=== PATIENT | male | born 1940 | race Caucasian/White ===

== ENCOUNTER 2021-03-11 18:06 | Inpatient (IN) | payer MEDICARE, OTHER ==
[~2021-03-11] VITALS: Ht 172.7 cm; Wt 75.1 kg
[2021-03-11 18:43] LABS: HEMOGLOBIN 14.2 gm/dl (14.0-17.5); RED BLOOD COUNT 4.02 M/UL (4.20-5.50); WHITE BLOOD COUNT 6.6 K/UL (4.5-11.0)
[2021-03-11 20:08] LABS: BUN/CREATININE RATIO 21 (0-10)
[2021-03-11] MEDS ORDERED: LOPRESSOR 50 MG50 MG PO (23:11)
[2021-03-11] MEDS ORDERED: ISOSORBIDE MONO30 MG PO (23:46)
[2021-03-11] MEDS ORDERED: CLOPIDOGREL75 MG PO (23:46)
[2021-03-11] MEDS ORDERED: ATORVASTATIN CA10 MG PO (23:47)
[2021-03-11] MEDS ORDERED: COZAAR 25MG TAB25 MG PO (23:47)
[2021-03-11] MEDS ORDERED: ADULT LOW DOSE81 MG PO (23:47)
[2021-03-11] MEDS ORDERED: HYDROCHLOROTH12.5 MG PO (23:47)
[2021-03-12 06:12] LABS: HEMOGLOBIN 13.2 gm/dl (14.0-17.5); RED BLOOD COUNT 3.8 M/UL (4.20-5.50); WHITE BLOOD COUNT 7.7 K/UL (4.5-11.0)
[2021-03-12 06:54] LABS: BUN/CREATININE RATIO 21 (0-10)
[2021-03-13 06:09] LABS: HEMOGLOBIN 13.6 gm/dl (14.0-17.5); RED BLOOD COUNT 3.89 M/UL (4.20-5.50); WHITE BLOOD COUNT 7.2 K/UL (4.5-11.0)
[2021-03-13 06:32] LABS: BUN/CREATININE RATIO 23 (0-10)
[2021-03-14 08:49] LABS: HEMOGLOBIN 13.1 gm/dl (14.0-17.5); RED BLOOD COUNT 3.77 M/UL (4.20-5.50)
--- NOTE | 2021-03-14 09:08 | NUR ---
PATIENT HR WAS 130'S AT 630 AM, GOT ORDERS PER EMAR DR PEREA MADE AWARE CARDIOLOGY CALLED BUT DIDN'T ANSWER, LEFT VOICEMAIL.... EKG AND ABG WILL BE OBTAINED [facility]....
[2021-03-14 09:34] LABS: BUN/CREATININE RATIO 25 (0-10)
[2021-03-14 17:56] LABS: BUN/CREATININE RATIO 31 (0-10)
--- NOTE | 2021-03-14 18:17 | NUR ---
CARDIO AND HOSPITALIST NOTIFIED OF PT HR HIGH 158 EKG RECIEVED MEDS GIVEN, REFER TO EMAR WCTM
[2021-03-15 04:26] LABS: BUN/CREATININE RATIO 35 (0-10)
[2021-03-16 04:10] LABS: HEMOGLOBIN 13.6 gm/dl (14.0-17.5); RED BLOOD COUNT 3.97 M/UL (4.20-5.50); WHITE BLOOD COUNT 6.4 K/UL (4.5-11.0)
[2021-03-16 04:30] LABS: BUN/CREATININE RATIO 29 (0-10)
[2021-03-17 02:35] LABS: HEMOGLOBIN 13.2 gm/dl (14.0-17.5); RED BLOOD COUNT 3.85 M/UL (4.20-5.50); WHITE BLOOD COUNT 7.1 K/UL (4.5-11.0)
[2021-03-17 03:00] LABS: BUN/CREATININE RATIO 35 (0-10)
--- NOTE | 2021-03-17 09:56 | NUR ---
ROOM AIR O2 SAT 87%
[2021-03-17] MEDS ORDERED: OMNICEF 300 MG300 MG PO (11:37)
[2021-03-17] MEDS ORDERED: MEDROL DOSEPAK 24 MG PO (11:37)
[2021-03-17] MEDS ORDERED: PROTONIX 40 MG40 M1 PO (11:37)
[2021-03-17] MEDS ORDERED: AZITHROMYCIN250 MG PO (11:37)
[2021-03-17] MEDS ORDERED: SODIUM CHLORIDE1 G1 PO (11:41)
[2021-03-17] MEDS ORDERED: DIGOXIN250 MCG/1 PO (11:41)
[2021-03-17] MEDS ORDERED: PROVENTIL HFA6.7 GM INH (11:45)
[2021-03-17] MEDS ORDERED: PULMICORT FLEX90 MCG INH (11:48)
== END 2021-03-17 16:46 | disposition home health service (06) | DRG 177 ==
LOC: ER1 18:06 → PROG CARE 20:32 → MED SURG 4 20:32 → CDU 20:32 → MED SURG 4 22:40 → PROG CARE 03-14 22:47
PROVIDERS: Internal Medicine; Internal Medicine Nephrology; Physician Assistant; ADMIT Internal Medicine
PROC: XW033E5 Introduction of Remdesivir Anti-infective into Peripheral Vein, Percutaneous Approach, New Technology Group 5 (ICD-10-PCS; principal; 2021-03-11)
PROC: 3E0333Z Introduction of Anti-inflammatory into Peripheral Vein, Percutaneous Approach (ICD-10-PCS; 2021-03-11)
PROC: 8E0ZXY6 Isolation (ICD-10-PCS; 2021-03-11)
DX: U07.1 COVID-19 (principal); J96.01 Acute respiratory failure with hypoxia; J12.82 Pneumonia due to coronavirus disease 2019; J96.02 Acute respiratory failure with hypercapnia; G93.41 Metabolic encephalopathy; J44.0 Chronic obstructive pulmonary disease with (acute) lower respiratory infection; E87.1 Hypo-osmolality and hyponatremia; Z66 Do not resuscitate; G47.33 Obstructive sleep apnea (adult) (pediatric); I10 Essential (primary) hypertension; I25.10 Atherosclerotic heart disease of native coronary artery without angina pectoris; E86.1 Hypovolemia; E86.0 Dehydration; F17.210 Nicotine dependence, cigarettes, uncomplicated; I27.20 Pulmonary hypertension, unspecified; I45.10 Unspecified right bundle-branch block; E78.5 Hyperlipidemia, unspecified; J98.4 Other disorders of lung; R41.0 Disorientation, unspecified; I48.91 Unspecified atrial fibrillation; Z79.01 Long term (current) use of anticoagulants; Z95.5 Presence of coronary angioplasty implant and graft; Z79.82 Long term (current) use of aspirin; Z99.81 Dependence on supplemental oxygen; I25.2 Old myocardial infarction
CPT/HCPCS: 36415; 36600; 71045; 80048; 80053; 81001; 82140; 82436; 82550; 82553; 82607; 82728; 82746; 82803; 83605; 83615; 83735; 83874; 83880; 83935; 84100; 84133; 84300; 84439; 84443; 84484; 85025; 85027; 85379; 85610; 85730; 86140; 87040; 93005; 94640; 94660; 94664; 94760; 97116; 97116-GP-CQ; 97161; 97530-GP-CQ; 99285; C9113; J0696; J1100; J1160; J1650; J3486; J7030; U0002